=== PATIENT | female | born 2000 | race Caucasian/White ===

== ENCOUNTER 2021-02-08 08:11 | Emergency (ER) | payer OTHER ==
[~2021-02-08] VITALS: Ht 177.8 cm; Wt 66.7 kg
== END 2021-02-08 11:46 | disposition home or self-care (01) ==
LOC: ER 08:11
DX: K81.9 Cholecystitis, unspecified (principal)

== ENCOUNTER 2021-02-11 09:04 | Emergency (ER) | payer OTHER ==
[~2021-02-11] VITALS: Ht 177.8 cm; Wt 112.0 kg
== END 2021-02-11 15:10 | disposition home or self-care (01) ==
LOC: ER 09:04
DX: B34.9 Viral infection, unspecified (principal); Z11.52 Encounter for screening for COVID-19

== ENCOUNTER 2022-10-24 15:56 | Emergency (ER) | payer OTHER ==
[~2022-10-24] VITALS: Ht 177.8 cm; Wt 117.9 kg
== END 2022-10-24 18:59 | disposition home or self-care (01) ==
LOC: ER 15:56
DX: K59.01 Slow transit constipation (principal); K29.70 Gastritis, unspecified, without bleeding; R10.9 Unspecified abdominal pain; Z91.013 Allergy to seafood

== ENCOUNTER → 2024-02-12 | Emergency (ER) | payer OTHER ==
[~2024-02-12] VITALS: Ht 180.3 cm; Wt 127.0 kg
[~2024-02-12] MED LIST: CEFTRIAXONE SODIUM 2,000 MG VIAL IV ONE; KETOROLAC TROMETHAMINE 15 MG VIAL IV STA
[2024-02-12 16:03] LABS: HEMATOCRIT 37.8 % (36.0-45.00); HEMOGLOBIN 12.3 g/dL (12.0-15.00); MEAN CELL VOLUME 77.5 fL (80.00-100.00); MEAN CORPUSCULAR HEMOGLOBIN 25.2 pg (27.00-32.0); MEAN CORPUSCULAR HGB CONC 32.5 g/dl (32.0-36.0); PLATELET COUNT 247 K/uL (150-450); RED BLOOD COUNT 4.88 M/uL (4.00-6.00); RED CELL DISTRIBUTION WIDTH 14.5 % (11.5-14.5)
== END | disposition home or self-care (01) ==
LOC: ER 13:14
PROVIDERS: General Practice
DX: L02.91 Cutaneous abscess, unspecified (principal); Z91.013 Allergy to seafood